=== PATIENT | female | born 1995 | race Caucasian/White ===

== ENCOUNTER → 2017-01-09 | Outpatient (CLI) | payer OTHER ==
[~2017-01-09] MED LIST: ALBU18002 INH; AMOX250C3 PO; ANTICRE6 PO; BSP15 PO; HYDR50CA2 PO; OMEP40CA41 PO; Proair HFA INH; RBX750 PO; RMR15 PO; SRQ100 PO; ULT50 PO; VLT/75 PO
== END | disposition home or self-care (01) ==
LOC: C.LAB 01:22
DX: Z02.83 Encounter for blood-alcohol and blood-drug test (principal)

== ENCOUNTER 2017-01-13 11:19 | Emergency (ER) | payer OTHER ==
[~2017-01-13] VITALS: Ht 167.6 cm; Wt 57.2 kg
[~2017-01-13 11:19] MED LIST changes: -ALBU18002 INH; -AMOX250C3 PO; -ANTICRE6 PO; -BSP15 PO; -HYDR50CA2 PO; -OMEP40CA41 PO; -RBX750 PO; -RMR15 PO; -SRQ100 PO; -VLT/75 PO
[2017-01-13 11:27] VITALS: TEMP 37; Ht 167.6 cm; Wt 57.2 kg
[2017-01-13] MEDS ORDERED: SODIUM CHLORIDE 0.9% 1000ML 1,000 ML IV STA (11:45)
[2017-01-13] MEDS ORDERED: ONDANSETRON INJ 2 MG/ML 2 ML VIAL IV STA (11:45)
[2017-01-13] MEDS ORDERED: ALBU18002 INH (11:58)
[2017-01-13 12:05] LABS: BASO % 1.1 %; COMPLETE YES; HEMATOCRIT 40.9 % (37-47); IG% 0.1 %; LYMPH % 24.5 %; LYMPH ABS # 2.17 K/uL (1.2-3.4); MEAN CELL VOLUME 94.2 fL (80-100); MEAN CORPUSCULAR HEMOGLOBIN 33.2 pg (25-34); MEAN CORPUSCULAR HGB CONC 35.2 g/dl (32-36); MEAN PLATELET VOLUME 11.1 fL (7.4-10.4); MONO % 8.3 %; PLATELET COUNT 209 K/uL (130-400); RED BLOOD COUNT 4.34 M/uL (4.2-5.4); WHITE BLOOD COUNT 8.84 K/uL (4.8-10.8)
[2017-01-13 12:16] LABS: URINE APPEARANCE TURBID (CLEAR); URINE BILIRUBIN NEG (NEG); URINE COLOR YELLOW; URINE NITRITE NEG (NEG); URINE PH 7.5 (4.5-7.5); URINE SPECIFIC GRAVITY 1.014 (1.000-1.030); UROBILINOGEN NEG (NEG); ZZUR CULT IF INDIC CLEAN CATCH NO
[2017-01-13 12:17] LABS: MANUAL MICROSCOPIC REQUIRED? NO; REVIEW REQ? YES
[2017-01-13 12:22] LABS: BUN/CREATININE RATIO 22.4 (10-20); CALCIUM 9.6 mg/dl (8.5-10.1); CREATININE 0.63 mg/dl (0.60-1.20); POTASSIUM 3.7 mmol/L (3.5-5.1)
[2017-01-13 12:27] LABS: ALB/GLOB RATIO 0.9 (0.9-2)
--- NOTE | 2017-01-13 12:49 | DIAGNOSTIC IMAGING REPORT ---
ABDOMINAL ULTRASOUND, RIGHT UPPER QUADRANT HISTORY: Right upper quadrant abdominal pain.. COMPARISON: Abdomen and pelvis CT 06/19/2016. FINDINGS: Pancreas: The pancreas demonstrates a normal echotexture. Liver: Unremarkable. Gallbladder: No gallbladder wall thickening. No gallstones. CBD: 4 mm. Right kidney: No hydronephrosis. IMPRESSION: No significant abnormality identified within the right upper quadrant. Electronically signed by: Skip Krishnamurthy M.D. 01/13/2017 12:48 PM Dictated Date/Time: 01/13/2017 12:46 PM
[2017-01-13] MEDS ORDERED: GI COCKTAIL PO STA (12:55)
[2017-01-13] MEDS ORDERED: LIDOCAINE HCL 2% VISC SOLN 20 ML UDC ONE (12:58)
[2017-01-13] MEDS ORDERED: ALUMINUM/MAGNESIUM SUSP 30 ML UDC ONE (12:58)
[2017-01-13] MEDS ORDERED: OMEP40CA41 PO (13:19)
--- NOTE | 2017-01-13 13:19 | EMERGENCY ROOM VISIT NOTE ---
History First contact with patient: 11:32 Chief Complaint: ABDOMINAL PAIN Stated Complaint: ABD PAIN, VOMITING Nursing Triage Summary: RUQ pain and pain by umbilicus that started 2 days ago History of Present Illness The patient is a 21 year old female who presents to the Emergency Room with complaints of abdominal pain and vomiting. The patient reports that she has been dizzy for the past few days. She does report that she is an alcoholic and quit drinking 3 days ago, which may be contributing to this. She states that this morning, she woke up with pain in her right upper abdomen. She began vomiting a few hours ago and has had 3 episodes of vomiting since then. She states the pain is worse when she is lying down. She rates her discomfort a 9/ 10 but has not taken any medication for the pain. The patient has a history of an appendectomy and PID. She denies any urinary symptoms, changes in bowel movements, fevers/chills, vaginal discharge, chest pain or shortness of breath. Review of Systems A complete 10-point Review of Systems was discussed with the patient, with pertinent positives and negatives listed in the History of Present Illness. All remaining Review of Systems questions can be considered negative unless otherwise specified. Past Medical/Surgical History Medical Problems: (1) Appendectomy (2) Asthma (3) Asthma, Unspecified (4) Chlamydia infection (5) Dysmenorrhea (6) Esophageal Reflux (7) Ovarian Cyst Nec/Nos (8) Pelvic pain in female (9) PID (pelvic inflammatory disease) Family History Cancer Diabetes mellitus Seizures Social History Smoking Status: Current Every Day Smoker Alcohol Use: occasionally Marital Status: single Housing Status: lives alone Occupation Status: employed Current/Historical Medications Scheduled Albuterol Sulfate (Proair Respiclick), 2 PUFFS INH QID Omeprazole (Prilosec), 40 MG PO DAILY Allergies Coded Allergies: Edetic Acid (Verified Allergy, Severe, PALPITATIONS, 01/13/17) Egg Phospholipids (Verified Allergy, Severe, PALPITATIONS, 01/13/17) Glycerin (Verified Allergy, Severe, PALPITATIONS, 01/13/17) Propofol (Verified Allergy, Severe, PALPITATIONS, 01/13/17) Cat Dander (Verified Allergy, Unknown, SHORTNESS OF BREATH, 01/13/17) Physical Exam Vital Signs Date Time Temp Pulse Resp B/P Pulse Ox O2 Delivery O2 Flow Rate FiO2 01/13/17 13:26 81 18 111/71 98 01/13/17 12:37 74 18 105/68 98 01/13/17 11:27 37.0 97 20 128/81 98 Room Air Physical Exam VITALS: Vitals are noted on the nurse's note and reviewed by myself. Vital signs stable. GENERAL: This is a 21-year-old female, in no acute distress, nondiaphoretic, well-developed well-nourished. SKIN: Capillary reflex less than 2 seconds. HEENT: Normocephalic. PERRLA. EOMI. Nares patent. Mucous membranes moist. Neck is supple without nuchal rigidity. HEART: Regular rate and rhythm without murmurs gallops or rubs. LUNGS: Clear to auscultation bilaterally without wheezes, rales or rhonchi. ABDOMEN: Positive bowel sounds x 4. Soft with mild tenderness of the right upper quadrant. Negative Chavez sign. No guarding or rebound tenderness. NEURO: Patient was alert and oriented to person place and time. Medical Decision & Procedures ER Provider Diagnostic Interpretation: ABDOMINAL ULTRASOUND, RIGHT UPPER QUADRANT FINDINGS: Pancreas: The pancreas demonstrates a normal echotexture. Liver: Unremarkable. Gallbladder: No gallbladder wall thickening. No gallstones. CBD: 4 mm. Right kidney: No hydronephrosis. IMPRESSION: No significant abnormality identified within the right upper quadrant. Laboratory Results 01/13/17 11:50 Red Blood Count 4.34, Mean Corpuscular Volume 94.2, Mean Corpuscular Hemoglobin 33.2, Mean Corpuscular Hemoglobin Concent 35.2, Mean Platelet Volume 11.1, Neutrophils (%) (Auto) 64.0, Lymphocytes (%) (Auto) 24.5, Monocytes (%) (Auto) 8.3, Eosinophils (%) (Auto) 2.0, Basophils (%) (Auto) 1.1, Neutrophils # (Auto) 5.65, Lymphocytes # (Auto) 2.17, Monocytes # (Auto) 0.73, Eosinophils # (Auto) 0.18, Basophils # (Auto) 0.10 01/13/17 11:50 Test 01/13/17 11:30 01/13/17 11:50 Urine Color YELLOW Urine Appearance TURBID (CLEAR) Urine pH 7.5 (4.5-7.5) Urine Specific [place] 1.014 (1.000-1.030) Urine Protein NEG (NEG) Urine Glucose (UA) NEG (NEG) Urine Ketones NEG (NEG) Urine Occult Blood NEG (NEG) Urine Nitrite NEG (NEG) Urine Bilirubin NEG (NEG) Urine Urobilinogen NEG (NEG) Urine Leukocyte Esterase NEG (NEG) Urine WBC (Auto) 0 /hpf (0-5) Urine RBC (Auto) 0-4 /hpf (0-4) Urine Hyaline Casts (Auto) 1-5 /lpf (0-5) Urine Epithelial Cells (Auto) 10-20 /lpf (0-5) Urine Bacteria (Auto) NEG (NEG) Urine Crystals AMORPHOUS SEDIMENT (NONE Urine Test NEG (NEG) White Blood Count 8.84 K/uL (4.8-10.8) Red Blood Count 4.34 M/uL (4.2-5.4) Hemoglobin 14.4 g/dL (12.0-16.0) Hematocrit 40.9 % (37-47) Mean Corpuscular Volume 94.2 fL (80-100) Mean Corpuscular Hemoglobin 33.2 pg (25-34) Mean Corpuscular Hemoglobin Concent 35.2 g/dl (32-36) Platelet Count 209 K/uL (130-400) Mean Platelet Volume 11.1 fL (7.4-10.4) Neutrophils (%) (Auto) 64.0 % Lymphocytes (%) (Auto) 24.5 % Monocytes (%) (Auto) 8.3 % Eosinophils (%) (Auto) 2.0 % Basophils (%) (Auto) 1.1 % Neutrophils # (Auto) 5.65 K/uL (1.4-6.5) Lymphocytes # (Auto) 2.17 K/uL (1.2-3.4) Monocytes # (Auto) 0.73 K/uL (0.11-0.59) Eosinophils # (Auto) 0.18 K/uL (0-0.5) Basophils # (Auto) 0.10 K/uL (0-0.2) RDW Standard Deviation 46.4 fL (36.4-46.3) RDW Coefficient of Variation 13.4 % (11.5-14.5) Immature Granulocyte % (Auto) 0.1 % Immature Granulocyte # (Auto) 0.01 K/uL (0.00-0.02) Anion Gap 10.0 mmol/L (3-11) Est Creatinine Clear Calc Drug Dose 126.5 ml/min Estimated GFR () 147.6 Estimated GFR (Non- 127.3 BUN/Creatinine Ratio 22.4 (10-20) Calcium Level 9.6 mg/dl (8.5-10.1) Total Bilirubin 0.3 mg/dl (0.2-1) Aspartate Amino Transf (AST/SGOT) 9 U/L (15-37) Alanine Aminotransferase (ALT/SGPT) 13 U/L (12-78) Alkaline Phosphatase 69 U/L (45-117) Total Protein 7.7 gm/dl (6.4-8.2) Albumin 3.7 gm/dl (3.4-5.0) Globulin 4.0 gm/dl (2.5-4.0) Albumin/Globulin Ratio 0.9 (0.9-2) Lipase 148 U/L (73-393) Medications Administered Medications (Trade) Dose Ordered Sig/Yeni Route Start Time Stop Time Status Last Admin Dose Admin Sodium Chloride (Nss 1000ml) 1,000 ml @ 999 mls/hr Q1H1M STAT IV 01/13/17 11:45 01/13/17 12:45 DC 01/13/17 12:00 999 MLS/HR Ondansetron HCl (Zofran Inj) 4 mg NOW STAT IV 01/13/17 11:45 01/13/17 11:47 DC 01/13/17 12:00 4 MG Al Hydroxide/Mg Hydroxide (Maalox Susp) 30 ml STK-MED ONCE .ROUTE 01/13/17 12:58 01/13/17 13:01 DC 01/13/17 12:58 30 ML Lidocaine HCl (Viscous Lidocaine 2% Soln) 20 ml STK-MED ONCE .ROUTE 01/13/17 12:58 01/13/17 13:02 DC 01/13/17 12:58 20 ML Medical Decision Differential diagnosis includes biliary colic, renal calculus, pyelonephritis, gastroenteritis, colitis, pancreatitis, among others. The patient was evaluated as above. Labs were drawn and IV access was obtained. Imaging studies were performed and read by radiology as above. The patient was medicated with 1 L normal saline solution, 4 mg Zofran and a GI cocktail. The patient was reassessed multiple times during their stay in the emergency department and remained in stable condition. The patient is a 21-year-old female who presents today complaining of right upper quadrant abdominal pain. Labs revealed no leukocytosis, anemia or concerning electrolyte abnormalities. Urinalysis was not suggestive of infection. Urine was negative. Right upper quadrant ultrasound was performed and showed no acute findings. Her symptoms are likely secondary to gastritis. The patient was given a GI cocktail with some relief of her pain. She was instructed to take Prilosec at home and follow-up with her primary care provider. She will return sooner for any worsening of her current condition or new/concerning symptoms. Based on the patient's presentation, lab results, and imaging studies, I feel the patient is stable for outpatient treatment. Discharge instructions were reviewed with the patient. The patient verbalized understanding of my assessment and treatment plan and was discharged home in good condition. Impression Primary Impression: Right upper quadrant abdominal pain Departure Information Dispostion Home / Self-Care Condition GOOD Prescriptions Omeprazole (PRILOSEC) 40 Mg Cap 40 MG PO DAILY for 14 Days, #14 CAP Prov: Karen Friedman ., JEN 01/13/17 Referrals No Doctor, Assigned (PCP) Patient Instructions My [facility] Additional Instructions You have been treated in the Emergency Department your Abdominal Pain. Laboratory results and imaging studies have ruled out any emergent causes for your abdominal pain which would warrant admission or surgery. Begin taking Prilosec as prescribed. For pain control, you can use the following [id number] medicines (if >12 yo): - Regular strength (325mg/tab) Tylenol (acetaminophen) 2 tabs every 4-6 hours as needed. Do not exceed 12 tablets in a 24 hour period. Avoid taking more than 4 grams (4000 mg) of Tylenol per day. This includes any other sources of acetaminophen you may take on a regular basis. - Regular strength (200 mg/tab) Advil (ibuprofen) 1-2 tabs every 4-6 hours as needed. Do not exceed a dose of 3200 mg per day. Drink plenty of water and stay well hydrated. As with any trip to the Emergency Department, you should follow-up within 48 hours with your Primary Care Provider from today's visit. Return to the emergency department if your symptoms persist despite treatment plan outlined above or if the following symptoms occur: increased fevers, chills , worsening nausea/vomiting, blood in your stool or urine.
[2017-01-13 13:26] VITALS: BP 111/71; PULSE 81; O2SAT 98
== END 2017-01-13 13:27 | disposition home or self-care (01) ==
LOC: C.EDB 11:20
DX: R10.11 Right upper quadrant pain (principal); K21.9 Gastro-esophageal reflux disease without esophagitis; N83.209 Unspecified ovarian cyst, unspecified side; J45.909 Unspecified asthma, uncomplicated; F17.200 Nicotine dependence, unspecified, uncomplicated; Z86.19 Personal history of other infectious and parasitic diseases; Z79.899 Other long term (current) drug therapy; Z87.898 Personal history of other specified conditions; Z88.8 Allergy status to other drugs, medicaments and biological substances; Z91.018 Allergy to other foods; Z91.09 Other allergy status, other than to drugs and biological substances; Z80.9 Family history of malignant neoplasm, unspecified; Z83.3 Family history of diabetes mellitus; Z82.0 Family history of epilepsy and other diseases of the nervous system

== ENCOUNTER 2017-03-26 04:10 | Emergency (ER) | payer OTHER ==
[~2017-03-26] VITALS: Ht 165.1 cm; Wt 57.9 kg
[~2017-03-26 04:10] MED LIST changes: +ALBU18002 INH; -Proair HFA INH; -ULT50 PO
[2017-03-26 04:13] VITALS: TEMP 36.7; Ht 165.1 cm; Wt 57.9 kg
[2017-03-26 04:52] LABS: BASO % 0.5 %; BASO ABS # 0.04 K/uL (0-0.2); COMPLETE YES; EOS % 3.3 %; HEMATOCRIT 45.5 % (37-47); LYMPH % 36.8 %; LYMPH ABS # 3.21 K/uL (1.2-3.4); MEAN CELL VOLUME 99.3 fL (80-100); MEAN CORPUSCULAR HEMOGLOBIN 33.2 pg (25-34); MEAN CORPUSCULAR HGB CONC 33.4 g/dl (32-36); MEAN PLATELET VOLUME 11.2 fL (7.4-10.4); MONO % 7.1 %; NEUT % 52.3 %; PLATELET COUNT 199 K/uL (130-400); RED BLOOD COUNT 4.58 M/uL (4.2-5.4); WHITE BLOOD COUNT 8.72 K/uL (4.8-10.8)
[2017-03-26 05:03] LABS: URINE APPEARANCE CLEAR (CLEAR); URINE BILIRUBIN NEG (NEG); URINE COLOR YELLOW; URINE NITRITE NEG (NEG); URINE PH 5.5 (4.5-7.5); URINE SPECIFIC GRAVITY 1.021 (1.000-1.030); UROBILINOGEN NEG (NEG)
[2017-03-26 05:08] LABS: MANUAL MICROSCOPIC REQUIRED? NO; REVIEW REQ? NO
[2017-03-26 05:13] LABS: BUN/CREATININE RATIO 10.8 (10-20); CALCIUM 8.4 mg/dl (8.5-10.1); CREATININE 0.76 mg/dl (0.60-1.20); POTASSIUM 3.6 mmol/L (3.5-5.1)
[2017-03-26 05:23] LABS: PREG INTERNAL NEGATIVE QC NEG CLEAR BACKGROUND; PREG INTERNAL POSITIVE QC POS CONTROL LINE
[2017-03-26] MEDS ORDERED: KETOROLAC TROMETHAMINE 30 MG/ML VIAL IV STA (05:25)
[2017-03-26 05:44] VITALS: O2SAT 99
--- NOTE | 2017-03-26 06:16 | EMERGENCY ROOM VISIT NOTE ---
History First contact with patient: 04:17 Chief Complaint: VAGINAL BLEEDING Stated Complaint: VAG BLEEDING History of Present Illness The patient is a 22 year old female who presents to the Emergency Room with complaints of sudden onset of vaginal bleeding cramping for the past few hours that a miscarriage one month ago. She has one living child. Patient denies chest pain, dyspnea, fever, chills, nausea, vomiting, diarrhea, urinary symptoms , back pain. Review of Systems See HPI for pertinent positives & negatives. A total of 10 systems reviewed and were otherwise negative. Past Medical/Surgical History Medical Problems: (1) Appendectomy (2) Asthma (3) Asthma, Unspecified (4) Chlamydia infection (5) Dysmenorrhea (6) Esophageal Reflux (7) Ovarian Cyst Nec/Nos (8) Pelvic pain in female (9) PID (pelvic inflammatory disease) Family History Cancer Diabetes mellitus Seizures Social History Smoking Status: Current Every Day Smoker Alcohol Use: occasionally Marital Status: single Housing Status: lives alone Occupation Status: employed Current/Historical Medications Scheduled Albuterol Sulfate (Proair Respiclick), 2 PUFFS INH QID Allergies Coded Allergies: Edetic Acid (Verified Allergy, Severe, PALPITATIONS, 03/26/17) Egg Phospholipids (Verified Allergy, Severe, PALPITATIONS, 03/26/17) Glycerin (Verified Allergy, Severe, PALPITATIONS, 03/26/17) Propofol (Verified Allergy, Severe, PALPITATIONS, 03/26/17) Cat Dander (Verified Allergy, Unknown, SHORTNESS OF BREATH, 03/26/17) Physical Exam Vital Signs Date Time Temp Pulse Resp B/P Pulse Ox O2 Delivery O2 Flow Rate FiO2 03/26/17 05:44 90 18 115/67 99 Room Air 03/26/17 05:44 99 Room Air 03/26/17 04:13 36.7 112 20 121/84 99 Room Air Physical Exam VITALS: Vitals are noted on the nurse's note and reviewed by myself. Vital signs stable. GENERAL: Pleasant female, in no acute distress, nondiaphoretic, well-developed well-nourished. SKIN: The skin was without rashes, erythema, edema, or bruising. There is no tenting of the skin. Capillary reflex less than 2 seconds. HEAD: Normocephalic atraumatic. EARS: External auditory canals clear, tympanic membranes pearly marquez without erythema or effusion bilaterally. EYES: Pupils equal round and reactive to light and accommodation. Conjunctivae without injection, sclerae without icterus. Extraocular movements intact. NOSE: Patent, turbinates without inflammation or discharge. MOUTH: Mucous membranes moist. Tonsils are not enlarged. Pharynx without erythema or exudate. Uvula midline. Airway patent. Tongue does not deviate. NECK: Supple without nuchal rigidity. No lymphadenopathy. No thyromegaly. Cervical spine is nontender. No JVD. HEART: Regular rate and rhythm without murmurs gallops or rubs. LUNGS: Clear to auscultation bilaterally without wheezes, rales or rhonchi. No dullness to percussion. No retractions or accessory muscle use. ABDOMEN: Positive bowel sounds x 4. Normal tympanic percussion. Soft, nontender, without masses or organomegaly. Chavez sign negative. No guarding or rebound tenderness. No CVA tenderness exam: Normal external female genitalia, minimal blood in the vault, os is closed, no CMT or adnexal tenderness. Geriatric Case Manager present. Patient declined STI testing. MUSCULOSKELETAL: No muscle atrophy, erythema, or edema noted. NEURO: Patient was alert and oriented to person place and time. Normal sensation to light and sharp touch. No focal neurological deficits. Medical Decision & Procedures Laboratory Results 03/26/17 04:38 Red Blood Count 4.58, Mean Corpuscular Volume 99.3, Mean Corpuscular Hemoglobin 33.2, Mean Corpuscular Hemoglobin Concent 33.4, Mean Platelet Volume 11.2, Neutrophils (%) (Auto) 52.3, Lymphocytes (%) (Auto) 36.8, Monocytes (%) (Auto) 7.1, Eosinophils (%) (Auto) 3.3, Basophils (%) (Auto) 0.5, Neutrophils # (Auto) 4.56, Lymphocytes # (Auto) 3.21, Monocytes # (Auto) 0.62, Eosinophils # (Auto) 0.29, Basophils # (Auto) 0.04 03/26/17 04:38 Test 03/26/17 04:38 White Blood Count 8.72 K/uL (4.8-10.8) Red Blood Count 4.58 M/uL (4.2-5.4) Hemoglobin 15.2 g/dL (12.0-16.0) Hematocrit 45.5 % (37-47) Mean Corpuscular Volume 99.3 fL (80-100) Mean Corpuscular Hemoglobin 33.2 pg (25-34) Mean Corpuscular Hemoglobin Concent 33.4 g/dl (32-36) Platelet Count 199 K/uL (130-400) Mean Platelet Volume 11.2 fL (7.4-10.4) Neutrophils (%) (Auto) 52.3 % Lymphocytes (%) (Auto) 36.8 % Monocytes (%) (Auto) 7.1 % Eosinophils (%) (Auto) 3.3 % Basophils (%) (Auto) 0.5 % Neutrophils # (Auto) 4.56 K/uL (1.4-6.5) Lymphocytes # (Auto) 3.21 K/uL (1.2-3.4) Monocytes # (Auto) 0.62 K/uL (0.11-0.59) Eosinophils # (Auto) 0.29 K/uL (0-0.5) Basophils # (Auto) 0.04 K/uL (0-0.2) RDW Standard Deviation 50.2 fL (36.4-46.3) RDW Coefficient of Variation 13.7 % (11.5-14.5) Immature Granulocyte % (Auto) 0.0 % Immature Granulocyte # (Auto) 0.00 K/uL (0.00-0.02) Urine Color YELLOW Urine Appearance CLEAR (CLEAR) Urine pH 5.5 (4.5-7.5) Urine Specific [place] 1.021 (1.000-1.030) Urine Protein NEG (NEG) Urine Glucose (UA) NEG (NEG) Urine Ketones NEG (NEG) Urine Occult Blood NEG (NEG) Urine Nitrite NEG (NEG) Urine Bilirubin NEG (NEG) Urine Urobilinogen NEG (NEG) Urine Leukocyte Esterase NEG (NEG) Urine Test NEG (NEG) Anion Gap 6.0 mmol/L (3-11) Est Creatinine Clear Calc Drug Dose 103.6 ml/min Estimated GFR () 128.1 Estimated GFR (Non- 110.6 BUN/Creatinine Ratio 10.8 (10-20) Calcium Level 8.4 mg/dl (8.5-10.1) Total Bilirubin 0.2 mg/dl (0.2-1) Aspartate Amino Transf (AST/SGOT) 11 U/L (15-37) Alanine Aminotransferase (ALT/SGPT) 17 U/L (12-78) Alkaline Phosphatase 72 U/L (45-117) Total Protein 8.1 gm/dl (6.4-8.2) Albumin 4.0 gm/dl (3.4-5.0) Globulin 4.1 gm/dl (2.5-4.0) Albumin/Globulin Ratio 1.0 (0.9-2) Human Chorionic Gonadotropin, Qual NEG (NEG) Medications Administered Medications (Trade) Dose Ordered Sig/Yeni Route Start Time Stop Time Status Last Admin Dose Admin Ketorolac Tromethamine (Toradol Inj) 30 mg NOW STAT IV 03/26/17 05:25 03/26/17 05:26 DC 03/26/17 05:47 30 MG ED Course Prior records/ancillary studies reviewed. Triage Nursing notes reviewed. The patient's history was concerning for vaginal bleeding and abdominal pain. Differential diagnosis: Etiologies such as ectopic , dysfunction uterine bleeding, bleeding dyscrasia, trauma, infection, as well as others were entertained. Physical examination: As above. Vitals signs revealed stable. ER treatment provided: IV fluids On reassessment the patient felt better. Diagnostic interpretation by me: CBC, coagulation studies, and chemistries were unremarkable. Urine test was negative. Urinalysis revealed no sign of infection. Imaging studies: Ultrasound was reviewed by myself and read by radiology This appears to be consistent with vaginal bleeding most likely the patient's menstrual cycle. Patient had stable H&H. She is well-appearing. She is advised to follow-up with her OB doctor this week or here in the ER sooner for heavy vaginal bleeding, pain, worsening signs or symptoms or as needed. Patient had no signs of PID on clinical exam. By the evaluation outlined above emergent etiologies such as bleeding dyscrasia, ectopic , trauma, as well as others were deemed relatively unlikely. The pt informed about the findings as listed above. All questions were answered and pleased with the treatment. Return instructions were outlined and the patient was discharged in stable condition. Referral: The patient was referred to her HANDLING TECH for follow-up in 2 to 3 days for a recheck of her current condition. Case reviewed with my attending. Medical Decision As above Impression Primary Impression: Abnormal vaginal bleeding Departure Information Dispostion Home / Self-Care Condition GOOD Referrals No Doctor, Assigned (PCP) Patient Instructions [facility] Additional Instructions Ibuprofen(Motrin, Advil) may be used for fever or pain. Use 600mg every six hours as needed. Take with food. Avoid using more than 2400mg in a 24 hour period. Do not use 2400mg per day for more than three consecutive days without physician direction. Prolonged inappropriate use can lead to stomach upset or ulcers. (AND/OR) Acetaminophen(Tylenol) may be used for fever or pain. Use 1000mg every six hours as needed. Avoid using more than 3000mg in a 24 hour period. Rest and drink plenty of fluids as tolerated. Continue current medications. Avoid strenuous activities and anything that worsens your pain. Resume normal activities once your symptoms resolve. Return to the ER immediately for worsening or persistent heavy vaginal bleeding , abdominal pain, vomiting, fevers, chest pains, difficulty breathing, worsening of your condition, or as needed. Follow up with your primary physician or HANDLING TECH in 2-3 days for a recheck of your current condition.
[2017-03-26 06:22] VITALS: BP 104/64; PULSE 81; O2SAT 95
--- NOTE | 2017-03-26 07:37 | DIAGNOSTIC IMAGING REPORT ---
PELVIC ULTRASOUND CLINICAL HISTORY: Vaginal bleeding and pain. COMPARISON STUDY: Pelvic ultrasound June 01, [address] of the abdomen and pelvis June 19, 2016. TECHNIQUE: Transabdominal and transvaginal sonography of the pelvis was performed. FINDINGS: The uterus measures 9.2 x 3.9 x 4.9 cm. Endometrium is normal in thickness, measuring 2 mm. There are no areas of increased vascularity within the endometrium. There is trace fluid within the endometrial canal. The ovaries are sonographically normal. The right ovary measures 2.9 x 1.4 x 1.9 cm and the left measures 2.7 x 1.2 x 1.2 cm. There is no free pelvic fluid. Color flow is identified within each ovary. IMPRESSION: Unremarkable pelvic ultrasound. Normal endometrial thickness of 2 mm with trace fluid within the endometrial canal. Electronically signed by: Matt Faith M.D. 03/26/2017 7:35 AM Dictated Date/Time: 03/26/2017 7:25 AM
[2017-07-10] MEDS ORDERED: QUET-115 PO (11:03)
== END 2017-03-26 06:22 | disposition home or self-care (01) ==
LOC: C.EDB 04:12 → C.EDA 06:22
DX: N93.9 Abnormal uterine and vaginal bleeding, unspecified (principal); J45.909 Unspecified asthma, uncomplicated; N94.6 Dysmenorrhea, unspecified; Z83.3 Family history of diabetes mellitus; Z82.0 Family history of epilepsy and other diseases of the nervous system; F17.200 Nicotine dependence, unspecified, uncomplicated

== ENCOUNTER 2017-04-07 19:43 | Emergency (ER) | payer OTHER ==
[~2017-04-07] VITALS: Ht 165.1 cm; Wt 57.3 kg
[2017-04-07 19:47] VITALS: TEMP 36.9; Ht 165.1 cm; Wt 57.3 kg
[2017-04-07] MEDS ORDERED: AMPICILLIN/SULBACTAM SOD INJ 3,000 MG in SODIUM CHLORIDE 0.9% 100ML 100 ML IV STA (20:00)
[2017-04-07] MEDS ORDERED: SODIUM CHLORIDE 0.9% 1000ML 1,000 ML IV STA (20:00)
[2017-04-07] MEDS ORDERED: MAGIC SWIZZLE PO STA (20:14)
[2017-04-07] MEDS ORDERED: METHYLPREDNISOLONE 125 MG VIAL IV STA (20:14)
[2017-04-07 21:01] LABS: MEAN CELL VOLUME 97.6 fL (80-100); MEAN CORPUSCULAR HGB CONC 33.9 g/dl (32-36); MEAN PLATELET VOLUME 10.8 fL (7.4-10.4); PLATELET COUNT 192 K/uL (130-400); RED BLOOD COUNT 4.51 M/uL (4.2-5.4)
[2017-04-07 21:16] LABS: BUN/CREATININE RATIO 10.9 (10-20); CREATININE 0.74 mg/dl (0.60-1.20); POTASSIUM 3.8 mmol/L (3.5-5.1)
[2017-04-07 21:19] LABS: BASO % 0.3 %; BASO ABS # 0.04 K/uL (0-0.2); COMPLETE YES; EOS % 0.6 %; IG% 0.3 %; LYMPH % 8.6 %; LYMPH ABS # 1.34 K/uL (1.2-3.4); MONO % 7.6 %; NEUT % 82.6 %
[2017-04-07] MEDS ORDERED: AMOX250C3 PO (21:24)
[2017-04-07] MEDS ORDERED: ANTICRE6 PO (21:25)
--- NOTE | 2017-04-07 21:37 | EMERGENCY ROOM VISIT NOTE ---
History First contact with patient: 19:52 Chief Complaint: HEADACHE Stated Complaint: STREP MIGRAINE DEHYDRATED History of Present Illness The patient is a 22 year old female who presents to the Emergency Room with complaints of strep throat. The patient states that she was just seen at her primary care provider's office and diagnosed with strep by throat swab. She states that she came directly here rather than filling her prescriptions because it is too painful for her to swallow. She states she has not been eating or drinking for 3 days because her throat is painful. She reports an associated headache. She denies any difficulty breathing or difficulty opening her mouth. She rates her discomfort a 5/10. She has not taken any medication at home for her symptoms. Review of Systems A complete 10 point review of systems was reviewed with the patient with pertinent positives and negatives as per history of present illness. All else were negative. Past Medical/Surgical History Medical Problems: (1) Appendectomy (2) Asthma (3) Asthma, Unspecified (4) Chlamydia infection (5) Dysmenorrhea (6) Esophageal Reflux (7) Ovarian Cyst Nec/Nos (8) Pelvic pain in female (9) PID (pelvic inflammatory disease) Family History Cancer Diabetes mellitus Seizures Social History Smoking Status: Current Every Day Smoker Alcohol Use: occasionally Marital Status: single Housing Status: lives alone Occupation Status: employed Current/Historical Medications No Active Prescriptions or Reported Meds Allergies Coded Allergies: Edetic Acid (Verified Allergy, Severe, PALPITATIONS, 04/07/17) Egg Phospholipids (Verified Allergy, Severe, PALPITATIONS, 04/07/17) Glycerin (Verified Allergy, Severe, PALPITATIONS, 04/07/17) Propofol (Verified Allergy, Severe, PALPITATIONS, 04/07/17) Cat Dander (Verified Allergy, Unknown, SHORTNESS OF BREATH, 04/07/17) Physical Exam Vital Signs Date Time Temp Pulse Resp B/P (MAP) Pulse Ox O2 Delivery O2 Flow Rate FiO2 04/07/17 21:41 88 16 106/76 100 Room Air 04/07/17 20:57 96 18 118/57 98 04/07/17 19:47 36.9 111 16 118/76 98 Room Air Physical Exam VITALS: Vitals are noted on the nurse's note and reviewed by myself. Vital signs stable. GENERAL: This is a 22-year-old female, in no acute distress, nondiaphoretic, well-developed well-nourished. SKIN: The skin was without rashes. EARS: External auditory canals clear, tympanic membranes pearly marquez without erythema or effusion bilaterally. EYES: Pupils equal round and reactive to light and accommodation. Conjunctivae without injection, sclerae without icterus. Extraocular movements intact. MOUTH: Mucous membranes moist. Tonsils 2+ bilaterally with erythema and exudate present. NECK: Supple without nuchal rigidity. No lymphadenopathy. No trismus. HEART: Regular rate and rhythm without murmurs gallops or rubs. LUNGS: Clear to auscultation bilaterally without wheezes, rales or rhonchi. NEURO: Patient was alert and oriented to person place and time. Medical Decision & Procedures Laboratory Results 04/07/17 20:45 Red Blood Count 4.51, Mean Corpuscular Volume 97.6, Mean Corpuscular Hemoglobin 33.0, Mean Corpuscular Hemoglobin Concent 33.9, Mean Platelet Volume 10.8, Neutrophils (%) (Auto) 82.6, Lymphocytes (%) (Auto) 8.6, Monocytes (%) (Auto) 7.6, Eosinophils (%) (Auto) 0.6, Basophils (%) (Auto) 0.3, Neutrophils # (Auto) 12.81, Lymphocytes # (Auto) 1.34, Monocytes # (Auto) 1.18, Eosinophils # (Auto) 0.09, Basophils # (Auto) 0.04 04/07/17 20:45 Test 04/07/17 20:45 White Blood Count 15.50 K/uL (4.8-10.8) Red Blood Count 4.51 M/uL (4.2-5.4) Hemoglobin 14.9 g/dL (12.0-16.0) Hematocrit 44.0 % (37-47) Mean Corpuscular Volume 97.6 fL (80-100) Mean Corpuscular Hemoglobin 33.0 pg (25-34) Mean Corpuscular Hemoglobin Concent 33.9 g/dl (32-36) Platelet Count 192 K/uL (130-400) Mean Platelet Volume 10.8 fL (7.4-10.4) Neutrophils (%) (Auto) 82.6 % Lymphocytes (%) (Auto) 8.6 % Monocytes (%) (Auto) 7.6 % Eosinophils (%) (Auto) 0.6 % Basophils (%) (Auto) 0.3 % Neutrophils # (Auto) 12.81 K/uL (1.4-6.5) Lymphocytes # (Auto) 1.34 K/uL (1.2-3.4) Monocytes # (Auto) 1.18 K/uL (0.11-0.59) Eosinophils # (Auto) 0.09 K/uL (0-0.5) Basophils # (Auto) 0.04 K/uL (0-0.2) RDW Standard Deviation 47.1 fL (36.4-46.3) RDW Coefficient of Variation 13.2 % (11.5-14.5) Immature Granulocyte % (Auto) 0.3 % Immature Granulocyte # (Auto) 0.04 K/uL (0.00-0.02) Anion Gap 8.0 mmol/L (3-11) Est Creatinine Clear Calc Drug Dose 106.4 ml/min Estimated GFR () 132.4 Estimated GFR (Non- 114.2 BUN/Creatinine Ratio 10.9 (10-20) Calcium Level 8.8 mg/dl (8.5-10.1) Monoscreen NEG (NEG) Medications Administered Medications (Trade) Dose Ordered Sig/Yeni Route Start Time Stop Time Status Last Admin Dose Admin Sodium Chloride 1,000 ml @ 999 mls/hr Q1H1M STAT IV 04/07/17 20:00 04/07/17 21:00 DC 04/07/17 20:50 999 MLS/HR Ampicillin Sodium/ Sulbactam Sodium 3000 mg/Sodium Chloride 108 ml @ 200 mls/hr NOW STAT IV 04/07/17 20:00 04/07/17 20:32 DC 04/07/17 20:50 200 MLS/HR Methylprednisolone Sodium Succinate (Solu-Medrol IV) 125 mg NOW STAT IV 04/07/17 20:14 04/07/17 20:16 DC 04/07/17 20:47 125 MG ED Course The patient was evaluated as above. Labs were drawn and IV access was obtained. Patient was medicated with 1 L normal saline solution, IV steroids and IV Unasyn. Patient was reevaluated and had some improvement, but was still complaining of throat pain. She was able to tolerate Gatorade. Discharge instructions were reviewed with the patient. The patient verbalized understanding of my assessment and treatment plan and was discharged home in good condition. Medical Decision Differential diagnosis includes strep pharyngitis, mononucleosis, peritonsillar abscess, retropharyngeal abscess, among others. The patient is a 22-year-old female who presents today complaining of sore throat in the setting of a recent strep diagnosis. There is no evidence of peritonsillar abscess on exam. Labs revealed a leukocytosis of 15,000 consistent with the patient's current infection. No concerning electrolyte abnormalities. The patient was given IV fluids, IV steroids and IV antibiotics. She was able to tolerate oral fluids. She was instructed that she will need to fill her prescription for antibiotics and may have some pain until then. She was instructed to follow-up with her primary care provider as needed. Based on the patient's presentation and work up, I feel the patient is stable for outpatient treatment. The patient was educated to return to the emergency department for any worsening of their current condition or new/concerning symptoms. She will follow up with her PCP. Medication reconciliation: I attest that I have personally reviewed the patient 's current medication list. Blood pressure screening: Patient was found to have normal blood pressure on screening and does not require follow-up. Impression Primary Impression: Strep pharyngitis Departure Information Dispostion Home / Self-Care Condition GOOD Prescriptions No Active Prescriptions or Reported Meds Referrals Radha Grace (PCP) Patient Instructions My [facility] Additional Instructions Take all medications as prescribed by your primary care provider. Rest and drink plenty of fluids. For pain control, you can use the following [id number] medicines (if >12 yo): - Regular strength (325mg/tab) Tylenol (acetaminophen) 2 tabs every 4-6 hours as needed. Do not exceed 12 tablets in a 24 hour period. Avoid taking more than 4 grams (4000 mg) of Tylenol per day. This includes any other sources of acetaminophen you may take on a regular basis. - Regular strength (200 mg/tab) Advil (ibuprofen) 1-2 tabs every 4-6 hours as needed. Do not exceed a dose of 3200 mg per day. Return to the emergency department with worsening swelling, difficulty swallowing or any other new/concerning symptoms.
[2017-04-07 21:41] VITALS: BP 106/76; PULSE 88; O2SAT 100
[2017-04-07 22:02] LABS: CALCIUM 8.8 mg/dl (8.5-10.1)
[2017-07-10] MEDS ORDERED: QUET-115 PO (11:03)
== END 2017-04-07 21:46 | disposition home or self-care (01) ==
LOC: C.EDB 19:44
DX: J02.0 Streptococcal pharyngitis (principal); R51 Headache; J45.909 Unspecified asthma, uncomplicated; K21.9 Gastro-esophageal reflux disease without esophagitis; Z80.9 Family history of malignant neoplasm, unspecified; Z83.3 Family history of diabetes mellitus; Z82.0 Family history of epilepsy and other diseases of the nervous system; F17.210 Nicotine dependence, cigarettes, uncomplicated

== ENCOUNTER → 2017-04-21 | Outpatient (CLI) | payer OTHER ==
[~2017-04-21] MED LIST changes: -ALBU18002 INH; +BSP15 PO; +HYDR50CA2 PO; +QUET-115 PO; +RBX750 PO; +RMR15 PO; +VLT/75 PO
== END | disposition home or self-care (01) ==
LOC: C.LAB 22:49
DX: Z04.8 Encounter for examination and observation for other specified reasons (principal)

== ENCOUNTER 2017-07-10 10:03 | Emergency (ER) | payer OTHER ==
[~2017-07-10] VITALS: Ht 167.6 cm; Wt 61.3 kg
[2017-07-10 10:12] VITALS: TEMP 36.8
[2017-07-10] MEDS ORDERED: VLT/75 PO (11:03)
[2017-07-10] MEDS ORDERED: RBX750 PO (11:03)
[2017-07-10] MEDS ORDERED: HYDR50CA2 PO (11:03)
[2017-07-10] MEDS ORDERED: SRQ100 PO (11:03)
[2017-07-10] MEDS ORDERED: BSP15 PO (11:03)
[2017-07-10] MEDS ORDERED: RMR15 PO (11:03)
[2017-07-10 11:09] VITALS: Ht 167.6 cm; Wt 61.3 kg
--- NOTE | 2017-07-10 11:12 | EMERGENCY ROOM VISIT NOTE ---
History Report prepared by Daniel: Heather Smyth Under the Supervision of: Dr. Lele Hurley M.D. First contact with patient: 11:02 Chief Complaint: BACK PAIN Stated Complaint: LOWER BACK PAIN History of Present Illness The patient is a 22 year old female who presents to the Emergency Room with complaints of constant lower back pain beginning a couple months ago. The patient takes ibuprofen with no relief. Her pain worsens with looking down. The patient was seeing a chiropractor and masseuse multiple times a week but has since stopped. She was on Toradol for two months for her chronic back pain but has since stopped. The patient denies any fever, chills, cough, neck pain, urinary symptoms, or incontinence. Source of History: patient Onset: a couple months ago Position: back (lower) Timing: constant Modifying Factors (Worsening): other (with looking down) Associated Symptoms: No fevers, No chills, No cough, No neck pain, No urinary symptoms Review of Systems See HPI for pertinent positives and negatives. A total of ten systems were reviewed and were otherwise negative. Past Medical & Surgical Medical Problems: (1) Appendectomy (2) Asthma (3) Asthma, Unspecified (4) Chlamydia infection (5) Dysmenorrhea (6) Esophageal Reflux (7) Ovarian Cyst Nec/Nos (8) Pelvic pain in female (9) PID (pelvic inflammatory disease) Family History Cancer Diabetes mellitus Seizures Social History Smoking Status: Never Smoker Alcohol Use: occasionally Marital Status: single Housing Status: lives alone Occupation Status: employed Current/Historical Medications Scheduled Buspirone HCl (Buspirone HCl), 15 MG PO TID Diclofenac Sod (Diclofenac Sodium Dr), 75 MG PO QAM Methocarbamol (Methocarbamol), 750 MG PO BID Mirtazapine (Mirtazapine), 15 MG PO HS Quetiapine Fumarate (Quetiapine Fumarate), 100 MG PO QID Scheduled PRN Hydroxyzine Pamoate (Vistaril), 50 MG PO DAILY PRN for Anxiety Allergies Coded Allergies: Edetic Acid (Verified Allergy, Severe, PALPITATIONS, 07/10/17) Egg Phospholipids (Verified Allergy, Severe, PALPITATIONS, 07/10/17) Glycerin (Verified Allergy, Severe, PALPITATIONS, 07/10/17) Propofol (Verified Allergy, Severe, PALPITATIONS, 07/10/17) Cat Dander (Verified Allergy, Unknown, SHORTNESS OF BREATH, 07/10/17) Physical Exam Vital Signs Date Time Temp Pulse Resp B/P (MAP) Pulse Ox O2 Delivery O2 Flow Rate FiO2 07/10/17 13:40 69 18 100/55 98 Room Air 07/10/17 11:35 75 112/69 99 Room Air 07/10/17 10:12 36.8 89 16 124/79 97 Room Air Physical Exam GENERAL: Awake, alert, well-appearing, in no distress HENT: Normocephalic, atraumatic. Oropharynx unremarkable. EYES: Normal conjunctiva. Sclera non-icteric. NECK: Supple. No nuchal rigidity. FROM. No JVD. RESPIRATORY: Clear to auscultation. CARDIAC: Regular rate, normal rhythm. Extremities warm and well perfused. Pulses equal. ABDOMEN: Soft, non-distended. No tenderness to palpation. No rebound or guarding. No masses. RECTAL: Deferred. MUSCULOSKELETAL: Chest examination reveals no tenderness. The back is symmetrical on inspection without obvious abnormality. Mild Lumbar, paraspinal and midline tenderness even with light touch. No joint edema. No clonus. Negative straight leg raise. LOWER EXTREMITIES: Calves are equal size bilaterally and non-tender. No edema. No discoloration. NEURO: Normal sensorium. No sensory or motor deficits noted. SKIN: No rash or jaundice noted. Medical Decision & Procedures Laboratory Results Test 07/10/17 10:57 Urine Color DK YELLOW Urine Appearance CLEAR (CLEAR) Urine pH 5.5 (4.5-7.5) Urine Specific [place] 1.027 (1.000-1.030) Urine Protein NEG (NEG) Urine Glucose (UA) NEG (NEG) Urine Ketones NEG (NEG) Urine Occult Blood NEG (NEG) Urine Nitrite NEG (NEG) Urine Bilirubin NEG (NEG) Urine Urobilinogen NEG (NEG) Urine Leukocyte Esterase NEG (NEG) Urine WBC (Auto) 1-5 /hpf (0-5) Urine RBC (Auto) 0-4 /hpf (0-4) Urine Hyaline Casts (Auto) 1-5 /lpf (0-5) Urine Epithelial Cells (Auto) >30 /lpf (0-5) Urine Bacteria (Auto) NEG (NEG) Laboratory results reviewed by me Medications Administered Medications (Trade) Dose Ordered Sig/Yeni Route Start Time Stop Time Status Last Admin Dose Admin Ibuprofen (Motrin Tab) 800 mg NOW STAT PO 07/10/17 11:14 07/10/17 11:16 DC 07/10/17 11:34 800 MG Acetaminophen (Tylenol Tab) 1,000 mg NOW STAT PO 07/10/17 11:14 07/10/17 11:16 DC 07/10/17 11:35 1,000 MG ED Course 1105: The patient was evaluated in room C6. A complete history and physical exam was performed. 1114: Tylenol tab 1000 mg PO, Motrin Tab 800 mg PO. 1343: I reevaluated the patient she is resting comfortably. 1355: I reevaluated the patient. Discussed results and discharge instructions: She verbalized understanding and agreement. The patient is ready for discharge. Medical Decision I reviewed the patient's past medical history, medications, and the nursing notes as described above. Differential diagnosis: muscular strain, soft tissue contusion, lumbar radiculopathy, UTI, and pyelonephritis Patient is a 22 yo woman who presents to the emergency department c/o of 2 months of back pain per HPI. On arrival the patient is in NAD, AFVSS. On exam the patient as ttp with even light touch of lumbar midline and paraspinal muscles. 5/5 strength and SILT x 4 ext. No clonus. Denies urinary retention or bowl incontinence. Abd soft NTND. UA negative. Mild improvement with APAP/ IB. I d/w patient that NSAIDS, rest, and heat are the best treatment for chronic back pain. Moreover, stronger medications such as narcotics are not advised, particularly b/c opiod-induced hyperalgesia and addictive potential. Given the patient's exam is reassuring there is no indication for imaging at this time. Findings and plan for follow-up d/w patient. Patient agreeable and d/c'd per discharge instructions. Medication Reconcilliation Current Medication List: was personally reviewed by me Blood Pressure Screening Patient's blood pressure: Normal blood pressure Impression Primary Impression: Low back pain Scribe Attestation The scribe's documentation has been prepared under my direction and personally reviewed by me in its entirety. I confirm that the note above accurately reflects all work, treatment, procedures, and medical decision making performed by me. Departure Information Dispostion Home / Self-Care Referrals Gerry Frias M.D. (PCP) Forms HOME CARE DOCUMENTATION FORM, IMPORTANT VISIT INFORMATION Patient Instructions Back Pain - [facility], Exercises Back Lower Back Stretch, Low Back Pain Self Care, Muscle Spasm, My [facility] Additional Instructions Please follow up with your primary care physician in the next 1-3 days for re- evaluation. Otherwise, your exam did not show signs of an emergent condition at this time. Take acetaminophen every 4-6 hours and ibuprofen every 6-8 hours scheduled for the next several days. Additionally apply heating pad at 20 minute intervals throughout the day for additional muscle relaxation and pain relief Return to the emergency department for worsening symptoms as described in the accompanying instructions.
[2017-07-10] MEDS ORDERED: IBUPROFEN 800 MG TAB PO STA (11:14)
[2017-07-10] MEDS ORDERED: ACETAMINOPHEN 500 MG TAB PO STA (11:14)
[2017-07-10 11:36] LABS: URINE APPEARANCE CLEAR (CLEAR); URINE BILIRUBIN NEG (NEG); URINE COLOR DK YELLOW; URINE EPITHELIAL CELL AUTO >30 /lpf (0-5); URINE NITRITE NEG (NEG); URINE PH 5.5 (4.5-7.5); URINE SPECIFIC GRAVITY 1.027 (1.000-1.030); UROBILINOGEN NEG (NEG); ZZUR CULT IF INDIC CLEAN CATCH NO
[2017-07-10 11:47] LABS: MANUAL MICROSCOPIC REQUIRED? NO; REVIEW REQ? NO
[2017-07-10 13:40] VITALS: BP 100/55; PULSE 69; O2SAT 98
== END 2017-07-10 14:12 | disposition home or self-care (01) ==
LOC: C.EDB 10:06 → C.EDC 14:12
DX: M54.5 Low back pain (principal); J45.909 Unspecified asthma, uncomplicated; K21.9 Gastro-esophageal reflux disease without esophagitis; N73.9 Female pelvic inflammatory disease, unspecified; Z83.3 Family history of diabetes mellitus; Z82.0 Family history of epilepsy and other diseases of the nervous system

== ENCOUNTER 2017-10-21 13:45 | Emergency (ER) | payer OTHER ==
[~2017-10-21] VITALS: Ht 160 cm; Wt 66.7 kg
[2017-10-21 13:55] VITALS: TEMP 36.9; Ht 160 cm; Wt 66.7 kg
[2017-10-21] MEDS ORDERED: NALT380I INJ (14:04)
--- NOTE | 2017-10-21 14:26 | EMERGENCY ROOM VISIT NOTE ---
ED Visit Note First contact with patient: 14:02 CHIEF COMPLAINT: Rash HISTORY OF PRESENT ILLNESS: This 22-year-old female patient presents to the emergency department by private vehicle complaining of pain at an injection site on her buttocks which started approximately 1 week ago. She states that she had an injection of Vivitrol (for treatment of opiod dependence) on 10/13, which was her first time receiving this medication. She states that she started to notice a lump in the area shortly after the injection of the area has been painful. She states the area has not been red, swollen, hot to touch , had any drainage, or any other evidence of infection. The patient denies fever, chills, nausea, or loss of appetite. They deny any URI symptoms. The patient has tried heat packs and Tylenol without improvement. The patient rates the discomfort as 5/10. No weakness or numbness. REVIEW OF SYSTEMS: A 6 system review of systems was completed with positives and pertinent negatives listed in the HPI. ALLERGIES: Reviewed in chart MEDICATIONS: Reviewed in chart PMH: Reviewed in chart, significant for opioid abuse. SOCIAL HISTORY: Lives at home with family. She is current every day smoker, she denies alcohol, and denies recreational drugs currently. PHYSICAL EXAM: Vital Signs: Reviewed Nurse's notes, vital signs stable. GENERAL : Pleasant and cooperative, in no acute distress, well-developed, well- nourished. SKIN: Warm, pink, dry. There is an area on the left buttock that is firm and nodular just under the skin, tender to palpation with even light palpation, no fluctuance or induration, no erythema, no swelling, not warm to touch, no drainage. Capillary refill less than 2 seconds. EMERGENCY DEPARTMENT COURSE: I examined the patient. There are no exam findings concerning for an allergic reaction, abscess or cellulitis at the injection site. The area feels consistent with some nodular scar tissue formation, and review of Vivitrol indicates that swelling and nodules at the site of injection are not uncommon. Patient was offered ibuprofen for her pain today, she declines this stating she'll take her medicine at home. Patient was instructed to follow up with her PCP her symptoms do not resolve in the next 1- 2 weeks. She was encouraged to take ibuprofen and Tylenol as needed for pain, and to continue using warm compresses to the area for comfort. She was given return precautions should symptoms of infection develop, she verbalizes understanding. Patient was discharged home in stable condition and ambulatory. Problem List Medical Problems: (1) Appendectomy Status: Resolved (2) Asthma Status: Chronic (3) Chlamydia infection Status: Resolved (4) Pelvic pain in female Status: Chronic (5) PID (pelvic inflammatory disease) Status: Resolved Current/Historical Medications Scheduled Buspirone HCl (Buspirone HCl), 15 MG PO QID Mirtazapine (Mirtazapine), 15 MG PO HS Naltrexone (Vivitrol), 1 DOSE INJ MONTHLY Quetiapine Fumarate (Quetiapine Fumarate), 100 MG PO QID Allergies Coded Allergies: Edetic Acid (Verified Allergy, Severe, PALPITATIONS, 07/10/17) Egg Phospholipids (Verified Allergy, Severe, PALPITATIONS, 07/10/17) Glycerin (Verified Allergy, Severe, PALPITATIONS, 07/10/17) Propofol (Verified Allergy, Severe, PALPITATIONS, 07/10/17) Cat Dander (Verified Allergy, Unknown, SHORTNESS OF BREATH, 07/10/17) Vital Signs Date Time Temp Pulse Resp B/P (MAP) Pulse Ox O2 Delivery O2 Flow Rate FiO2 10/21/17 14:40 72 18 117/68 99 10/21/17 13:55 36.9 106 18 112/70 98 Room Air Departure Information Impression Primary Impression: Injection site reaction Dispostion Home / Self-Care Condition GOOD Referrals Gerry Frias M.D. (PCP) Patient Instructions Injection Intramuscular Buttock Dc, [facility] Additional Instructions You may take ibuprofen 800 mg every 8 hours and/or Tylenol 1000 mg every 8 hours as needed for pain. Try alternating between these two medications every 4 hours for the best pain relief. Apply a heating pad to the area for 20-30 minutes at a time throughout the day for discomfort. Follow-up with her primary care provider if your symptoms do not resolve in the next week. Seek immediate medical attention for any signs of infection, including redness, swelling, increasing pain, hot to the touch, pus drainage, fevers > 101.5, or any other concerns. Problem Qualifiers Primary Impression: Injection site reaction Encounter type: initial encounter Qualified Codes: T80.90XA - Unspecified complication following infusion and therapeutic injection, initial encounter
[2017-10-21 14:40] VITALS: BP 117/68; PULSE 72; O2SAT 99
== END 2017-10-21 14:41 | disposition home or self-care (01) ==
LOC: C.EDB 13:47 → C.EDD 14:41
DX: T80.90XA Unspecified complication following infusion and therapeutic injection, initial encounter (principal); Y84.8 Other medical procedures as the cause of abnormal reaction of the patient, or of later complication, without mention of misadventure at the time of the procedure; J45.909 Unspecified asthma, uncomplicated; F17.210 Nicotine dependence, cigarettes, uncomplicated

== ENCOUNTER 2017-10-28 00:42 | Emergency (ER) | payer OTHER ==
[~2017-10-28] VITALS: Ht 167.6 cm; Wt 53.0 kg
[~2017-10-28 00:42] MED LIST changes: +NALT380I INJ
[2017-10-28 00:47] VITALS: TEMP 36.7; Ht 167.6 cm; Wt 53.0 kg
[2017-10-28] MEDS ORDERED: MIRT30TA2 PO (01:08)
[2017-10-28] MEDS ORDERED: CLIN300C2 PO (01:54)
--- NOTE | 2017-10-28 01:57 | EMERGENCY ROOM VISIT NOTE ---
History First contact with patient: 00:49 Chief Complaint: ALLERGIC REACTION Stated Complaint: REACTION TO VIVATRIL SHOT AT INJECTION SITE Nursing Triage Summary: Got Vivitrol shot 2 weeks ago in left buttocks, now having pain, swelling. Was seen this ED a couple days ago, getting worse. Nausea, pressure in head. History of Present Illness The patient is a 22 year old female who presents to the Emergency Room with complaints of swelling in pain in the right buttock after receiving an injection of Vivitrol approximately 2 weeks ago. The patient received this injection in [place] for history of opioid dependence. She does report a history of IV drug use. The patient was seen here approximately one week ago for the same symptoms. She reports she has been using warm compresses without improvement of her symptoms. She feels that her symptoms have worsened in that time period. She was seen by her primary care provider today and referred here because "they were not sure what to do with her." She denies any fevers. She states she has been nauseous. She states this was the first time receiving this medication. She rates her overall discomfort an 8/10. Review of Systems A complete 10 point review of systems was reviewed with the patient with pertinent positives and negatives as per history of present illness. All else were negative. Past Medical/Surgical History Medical Problems: (1) Appendectomy (2) Asthma (3) Asthma, Unspecified (4) Chlamydia infection (5) Dysmenorrhea (6) Esophageal Reflux (7) Ovarian Cyst Nec/Nos (8) Pelvic pain in female (9) PID (pelvic inflammatory disease) Family History Cancer Diabetes mellitus Seizures Social History Smoking Status: Current Every Day Smoker Alcohol Use: occasionally Marital Status: single Housing Status: lives alone Occupation Status: employed Current/Historical Medications Scheduled Buspirone HCl (Buspirone HCl), 15 MG PO QID Clindamycin Hcl (Cleocin), 300 MG PO QID Mirtazapine Soltab (Remeron Soltab), 30 MG PO DAILY Naltrexone (Vivitrol), 1 DOSE INJ MONTHLY Quetiapine Fumarate (Quetiapine Fumarate), 100 MG PO QID Physical Exam Vital Signs Date Time Temp Pulse Resp B/P (MAP) Pulse Ox O2 Delivery O2 Flow Rate FiO2 10/28/17 00:47 36.7 100 20 149/73 95 Room Air Physical Exam VITALS: Vitals are noted on the nurse's note and reviewed by myself. Vital signs stable. GENERAL: This is a 22-year-old female, in no acute distress, nondiaphoretic, well-developed well-nourished. SKIN: There is an area of mild erythema, warmth and induration to the left upper gluteal region which measures approximately 3-4 cm in diameter. This area is tender to palpation. There is no palpable fluctuance. There is no drainage or open wound. NEURO: Patient was alert and oriented to person place and time. Medical Decision & Procedures Medical Decision Differential diagnosis includes cellulitis, abscess, injection site reaction, skin necrosis, among others. The patient was evaluated as above. She does have an area of induration and tenderness without fluctuance to the left gluteal region. The medication Vivitrol does commonly cause localized skin reactions, although the FDA does report cases of skin necrosis and abscess requiring surgical debridement in a small amount of cases. The patient will be treated for suspected cellulitis at this time. As the patient has a history of IV drug use, I do think it is important to cover for MRSA. The patient reports an allergic reaction to Bactrim in the past. For this reason, she will be placed on clindamycin. She was instructed to continue warm compresses. She may need evaluation by a surgeon and was given information for a general surgeon. She was instructed to follow-up with her primary care provider in 48 hours for a recheck. She verbalized understanding of my assessment and treatment plan and was discharged home in good condition. The patient's case was reviewed with Dr. Marquez, ED attending physician, who agreed with my assessment and treatment plan. Medication Reconcilliation Current Medication List: was personally reviewed by me Blood Pressure Screening Patient's blood pressure: Normal blood pressure Impression Primary Impression: Cellulitis of buttock Departure Information Dispostion Home / Self-Care Condition GOOD Prescriptions Clindamycin Hcl (CLEOCIN) 300 Mg Cap 300 MG PO QID for 10 Days, #40 CAP Prov: Karen Friedman .JEN 10/28/17 Referrals Gerry Frias M.D. (PCP) Vasile Beyer D.O. Patient Instructions My [facility] Additional Instructions You were prescribed Clindamycin to be taken four times daily as prescribed. This is an antibiotic. All antibiotics have the potential to cause diarrhea. Stop this medication and contact a medical provider if you were to develop any significant adverse side effects including: wheezing, shortness of breath, passing out, vomiting, or a diffuse rash. Always take antibiotics as directed and COMPLETE the ENTIRE course regardless of the improvement of your symptoms. For pain control, you can use the following [id number] medicines (if >12 yo): - Regular strength (325mg/tab) Tylenol (acetaminophen) 2 tabs every 4-6 hours as needed. Do not exceed 12 tablets in a 24 hour period. Avoid taking more than 4 grams (4000 mg) of Tylenol per day. This includes any other sources of acetaminophen you may take on a regular basis. - Regular strength (200 mg/tab) Advil (ibuprofen) 1-2 tabs every 4-6 hours as needed. Do not exceed a dose of 3200 mg per day. Continue to use warm compresses on the area frequently. Injection sites are common after receiving this medication, however sometimes you may develop reactions which required you to see a surgeon. You have been provided with the information for Dr. Beyer, a general surgeon. Call tomorrow to schedule an appointment. You should be rechecked by her primary care provider in 2 days to see if things are improving. Return here for worsening symptoms, fever, or any other new/concerning symptoms.
[2017-10-28] MEDS ORDERED: CLINDAMYCIN HCL 150 MG CAP PO ONE (02:00)
[2017-10-28 02:11] VITALS: BP 107/85; PULSE 87; O2SAT 98
== END 2017-10-28 02:11 | disposition home or self-care (01) ==
LOC: C.EDB 00:44 → C.EDA 02:11
DX: L03.317 Cellulitis of buttock (principal); J45.909 Unspecified asthma, uncomplicated; K21.9 Gastro-esophageal reflux disease without esophagitis; Z79.899 Other long term (current) drug therapy; Z87.42 Personal history of other diseases of the female genital tract; Z82.0 Family history of epilepsy and other diseases of the nervous system; Z83.3 Family history of diabetes mellitus; F17.200 Nicotine dependence, unspecified, uncomplicated

== ENCOUNTER 2018-01-26 08:23 | Emergency (ER) | payer OTHER ==
[~2018-01-26] VITALS: Ht 165.1 cm; Wt 59.7 kg
[~2018-01-26 08:23] MED LIST changes: -HYDR50CA2 PO; +MIRT30TA2 PO; -RBX750 PO; -RMR15 PO; -VLT/75 PO
[2018-01-26 08:29] VITALS: TEMP 37; Ht 165.1 cm; Wt 59.7 kg
--- NOTE | 2018-01-26 09:21 | DIAGNOSTIC IMAGING REPORT ---
MAXILLOFACIAL CT WITHOUT CONTRAST CLINICAL HISTORY: Facial trauma following syncope. COMPARISON STUDY: None. TECHNIQUE: A maxillofacial CT was performed without IV contrast. Coronal and sagittal reformats were viewed. A dose lowering technique was utilized adhering to the principles of ALARA. FINDINGS: A right inferior facial contusion is noted located anterior to the right parasymphyseal region of the mandible. No mandibular fracture is identified. Alignment of the temporomandibular joints is anatomic. There is no acute facial fracture. There is moderate rightward deviation the nasal septum with spur formation. There is mild sinus mucosal thickening, most evident within the ethmoid sinuses. Mastoid air cells are clear. There is no upper cervical spine fracture. Several piercings are incidentally noted. IMPRESSION: No acute facial fracture. Right inferior facial contusion. Electronically signed by: Matt Faith M.D. 01/26/2018 9:20 AM Dictated Date/Time: 01/26/2018 9:14 AM
[2018-01-26] MEDS ORDERED: KETO10TA PO (09:45)
[2018-01-26 10:10] VITALS: BP 121/81; PULSE 69; O2SAT 98
--- NOTE | 2018-01-26 17:05 | EMERGENCY ROOM VISIT NOTE ---
ED Visit Note First contact with patient: 08:33 Chief Complaint: Chin pain. History of Present Illness: Ms. Carlos is a 22-year-old white female who ambulates into the ED complaining of anterior ch pain. 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 She reports she started experiencing an abrupt onset of what she calls her pelvic inflammatory disease abdominal pain. She reports this is a chronic pain and intermittently flares. This pain started approximately 11:00 PM last evening. She reports after the onset of her pain she developed lightheadedness and had a syncopal episode. She reports while she was falling to the ground she struck her chin on a sink. She reports before the fall she was not experiencing any lightheadedness or dizziness, at the time of the fall she had no loss of consciousness. I also tried to question patients on her syncopal episode and once again she reaffirmed that she only wanted her chin evaluated today and did not want any additional testing. Currently she is complaining of a sharp and throbbing sensation over the anterior aspect of her chin. She rates this discomfort 7/10. She reports radiation of her pain into the bilateral ears/auditory canals. Her pain worsens with palpation and opening her mouth and biting down.. She has not identified any alleviating factors related to the pain. She reports she has taken any medications for pain for pain prior to arrival at the hospital. Associated with her pain she feels like her hearing is not as clear as it normally, she is experiencing headache and dizziness and intermittent nausea. When I tried to define her symptoms on evaluation for a possible closed head injury she informed me that she only wished to have her chin examined. Additionally she also reports she continues to have lower abdominal pain. I did offer to provide provide further evaluation on her symptoms of abdominal pain and headache and once again she refused and only wanted testing for her chin performed. She denies any visual changes, voice changes, recent dental work, neck pain, back pain, chest pain, shortness of breath, abdominal pain, nausea/vomiting, extremity weakness/numbness/tingling. Review of Systems: As noted above in history of present illness. At least body systems were reviewed and found to be negative as noted above. Past Medical History: (1) Appendectomy (2) Asthma (3) Asthma, Unspecified (4) Chlamydia infection (5) Dysmenorrhea (6) Esophageal Reflux (7) Ovarian Cyst Nec/Nos (8) Pelvic pain in female (9) PID (pelvic inflammatory disease) Current Medications: Medications Dose Route/Sig Max Daily Dose Days Date Category Remeron Soltab (Mirtazapine) 30 Mg Soltab 30 Mg PO DAILY 10/28/17 Reported Quetiapine Fumarate 100 Mg Tab 100 Mg PO QID 07/10/17 Reported Buspirone HCl 15 Mg Tab 15 Mg PO QID 07/10/17 Reported Allergies to Medications: Edetic acid. Egg phospholipids, Claritin, propofol Social History: Patient is currently employed; she feels safe in her home environment; she admits to tobacco use and denies alcohol use. Physical Examination: Vital Signs: Date Time Temp Pulse Resp B/P (MAP) Pulse Ox O2 Delivery O2 Flow Rate FiO2 01/26/18 10:10 69 18 121/81 98 01/26/18 08:29 37.0 84 18 121/82 98 Room Air GENERAL: 24-year-old female in mild distress due to pain, nontoxic-appearing, afebrile and hemodynamically stable. NEUROLOGICAL: Awake, alert and oriented to person, place and time. Answering questions appropriately and following commands. Normal gait. Good hand eye coordination. Cranial nerves II through XII grossly intact. SKIN: Warm, dry and pink. Contusion over the anterior and lateral aspect of the left chin. No active bleeding. HEENT: Atraumatic and normocephalic. Skull: No bony deformities, bony crepitus , swelling or ecchymosis. No raccoons eyes or [place] signs. No drainage from ears of the nares; no hemotympanum. Face: Contusion of the inferior right lateral border of the mandible. There is no bony deformity or crepitus. PERRLA. EOMI without nystagmus. Sclera white and conjunctiva pink. No malocclusion. Because of patient's pain she could only open her mouth so far and the airway was patent. No foreign bodies were noted. Her speech was normal and clear. No intraoral trauma or dental trauma was noted. BACK: No tenderness over the bony spine. No CVA tenderness. THORAX: Lungs sounds are clear to auscultation and equal bilaterally with symmetrical chest wall. EXTREMITIES: Moves all extremities well on command and with purpose. All distal neurovascular statuses are intact and equal bilaterally. ED Course: Patient is assessed as noted above. Patient's medication list was reviewed. Patient was offered pain medication and refused. Facial CT: Was read by the radiologist and reviewed by myself shows no acute facial fracture. Patient was educated about today's findings and instructed on her treatment plan ; she verbalized understanding and agreement with this plan. Clinical Impression: Chin contusion. Abdominal pain. Syncope. Disposition: Patient discharged home in stable condition; prior to departure she was reassessed and subjectively reported she was feeling the same. Plan: Patient was prescribed Toradol 10 mg every 6 hours as needed for pain and she was encouraged to alternate the Toradol with 650 mg of acetaminophen every 3 hours as needed. Other comfort measures included rest and ice, the use of a liquid or mechanical soft diet until resolution of pain. Patient was educated on signs of head injury. Patient was encouraged to consider following up with [employer] for her ongoing chronic PID pain. Patient was encouraged to return follow-up with her primary care provider for recheck of her chin pain if no better in 3-4 days. Patient is encouraged return to the ED for any signs of head injury or any new/ concerning symptoms
== END 2018-01-26 10:12 | disposition home or self-care (01) ==
LOC: C.EDB 08:25
DX: S00.83XA Contusion of other part of head, initial encounter (principal); W22.8XXA Striking against or struck by other objects, initial encounter; R55 Syncope and collapse; R10.30 Lower abdominal pain, unspecified; R51 Headache; R11.0 Nausea; R42 Dizziness and giddiness; J45.909 Unspecified asthma, uncomplicated; Z72.0 Tobacco use; Z88.8 Allergy status to other drugs, medicaments and biological substances; Z91.018 Allergy to other foods; Z91.012 Allergy to eggs

== ENCOUNTER 2024-10-20 06:18 | Inpatient (IN) ==
[2024-10-20] MEDS ORDERED: ACETAMINOPHEN 325 MG TAB PO PRN (07:33)
[2024-10-20] MEDS ORDERED: LIDOCAINE 1% LOCAL 20 ML VIAL INFIL PRN (07:33)
[2024-10-20] MEDS ORDERED: CALCIUM CARBONATE 500 MG CHEWABLE TAB PO PRN (07:33)
[2024-10-20] MEDS ORDERED: OXYTOCIN 30 UNITS/NSS 30 UNITS/500 ML BAG IV PRN ×2 (07:33→11:31)
[2024-10-20] MEDS ORDERED: SODIUM CHLORIDE 0.9% 1,000 ML IV SCH (08:15)
[2024-10-20 08:21] LABS: Hematocrit (blood only) 31.1 % (37.0-47.0); Hemoglobin 10.1 g/dl (12.0-16.0); Mean Corpuscular Hemoglobin 28.1 pg (25.0-34.0); Mean Corpuscular Hgb Conc 32.5 g/dL (32.0-36.0); Mean Corpuscular Volume 86.6 fL (80.0-100.0); Mean Platelet Volume 10.7 fL (9.4-12.4); Platelet Count 228 K/uL (130-400); RDW Coefficient of Variation 13.4 % (11.5-14.5); RDW Standard Deviation 41.9 fL (36.4-46.3); Red Blood Count 3.59 M/uL (4.20-5.40); White Blood Count 11.57 K/ul (4.8-10.8)
[2024-10-20] MEDS ORDERED: fentaNYL citrate PF 100 MCG/2 ML VIAL EPI PRN (08:25)
[2024-10-20] MEDS ORDERED: NALBUPHINE HCL INJ 10 MG/ML AMP IV PRN (08:25)
[2024-10-20] MEDS: SODIUM CHLORIDE 0.9% 1,000 ML IV SCH (08:25)
[2024-10-20] MEDS ORDERED: NALOXONE HCL 1 MG in SODIUM CHLORIDE 0.9% 1,000 ML IV PRN (08:25)
[2024-10-20] MEDS ORDERED: SODIUM CHLORIDE 0.9% PF INJ 10 ML VIAL EPI PRN (08:25)
[2024-10-20] MEDS ORDERED: diphenhydrAMINE 50 MG/ML VIAL IV PRN (08:25)
[2024-10-20] MEDS ORDERED: ROPIVACAINE 0.5% PF 5 MG/ML 20 ML VIAL EPI PRN (08:25)
[2024-10-20] MEDS ORDERED: LIDOCAINE 2% MPF LOCAL 5 ML VIAL EPI PRN (08:25)
[2024-10-20] MEDS ORDERED: NALOXONE HCL 0.4 MG/1 ML VIAL/CARP IV PRN (08:25)
[2024-10-20] MEDS ORDERED: ePHEDrine sulfate 50 MG/ML AMP IV PRN (08:25)
[2024-10-20] MEDS ORDERED: BUPIVACAINE 0.25% PF 30 ML VIAL EPI PRN (08:25)
[2024-10-20] MEDS ORDERED: fentANYL 2 MCG/ML BUPIVacaine 0.125%-NSS 100ML BAG EPI PRN (08:25)
--- NOTE | 2024-10-20 08:27 | Anesthesiology Consultation ---
Date of Service October 20, 2024 Assessment & Plan (1) Encounter for pre-operative examination: Chart Review Chart Review: Patient NOT seen in Pre Admission Testing and Acceptable Risk for Labor Epidural Consults Requested none History Height/Weight Height: 5 ft 5 in Weight: 79.379 kg Allergies Allergy/AdvReac Type Severity Reaction Status Date / Time cat dander Allergy Severe SHORTNESS Verified 10/20/24 07:34 OF BREATH edetic acid Allergy Severe PALPITATION Verified 10/20/24 07:34 S glycerin Allergy Severe PALPITATION Verified 10/20/24 07:34 S propofol Allergy Severe PALPITATION Verified 10/20/24 07:34 S Egg Phospholipids Allergy Severe PALPITATION Uncoded 10/10/24 11:33 S Medications Home Medications Medication Instructions Recorded Confirmed Last Taken vits no.124-ferrous fum 1 tab PO DAILY 10/20/24 10/20/24 10/18/24 08:30 27 mg iron-folic acid 800 mcg tablet ( Vitamin) Past Medical History Medical History (Updated 10/20/24 @ 08:27 by Remington Dumont MD) Encounter for pre-operative examination Other and unspecified ovarian cyst Unspecified asthma, uncomplicated Infertility, female Varicella vaccination Intrauterine (08/29/12) Feeling suicidal Esophageal reflux Dysmenorrhea Drug overdose Depression Asthma Yeast cystitis UTI (urinary tract infection) Syncope Strep pharyngitis Pelvic pain in female Pain, dental Pain in left lower leg Nausea and vomiting Left flank pain Dizziness Diarrhea Dental infection Chronic abdominal pain Bilateral leg pain Back strain Arthralgia Abdominal pain Chlamydia infection PID (pelvic inflammatory disease) Dehydration Syncope Laryngitis Concussion Vomiting Abdominal pain Acute costochondritis Exercise / Class Metabolic Activity II 4-5 Yardwork/Stairs/Walk up hill Past Family History Family History Uncle Colorectal cancer Mother Cervical cancer Other No significant family history Denies family history of Ovarian cancer Myocardial infarction Breast cancer Past Surgical History Surgical History S/P wisdom tooth extraction S/P exploratory laparotomy S/P appendectomy Social History Smoking Status: Former smoker tobacco type: cigarettes Smoking cigarettes per day: non-nictoine vape; occasional Hx Alcohol Use: No Hx Substance Use: No (denies clean for 6 years) Last Used Substance Other:: hx of meth and heroine use; clean for 6 years Physical Exam Vital Signs Last Vital Signs Temp 36.7 C 10/20/24 08:55 Pulse 93 H 10/20/24 09:19 Resp 20 10/20/24 08:55 BP 119/81 10/20/24 09:18 Pulse Ox 98 10/20/24 09:19 Testing Laboratory Results 10/20/24 07:53
[2024-10-20] MEDS: LIDOCAINE 2%/EPINEPHRINE 1:200,000 20 ML PF ONE (09:21)
[2024-10-20] MEDS: BUPIVACAINE 0.25% PF 30 ML VIAL ONE (09:21)
[2024-10-20] MEDS: fentaNYL citrate PF 100 MCG/2 ML VIAL ONE (09:22)
[2024-10-20] MEDS: fentANYL 2 MCG/ML BUPIVacaine 0.125%-NSS 100ML BAG ONE (09:23)
[2024-10-20] MEDS: SODIUM CHLORIDE 0.9% PF INJ 10 ML VIAL ONE (09:30)
[2024-10-20] MEDS: SODIUM CHLORIDE 0.9% PF INJ 10 ML VIAL EPI STA (09:34)
[2024-10-20] MEDS: OXYTOCIN 30 UNITS/NSS 30 UNITS/500 ML BAG IV PRN (10:03)
[2024-10-20] MEDS: ePHEDrine sulfate 50 MG/ML AMP ONE (10:07)
--- NOTE | 2024-10-20 10:12 | History & Physical Report ---
Date of Service October 20, 2024 Assessment & Plan (1) Encounter for vaginal delivery: Plan: 29 years +1 at 38 W6 D POG in labor with Rh Negative non isoimmunized status( last antibody 08/29: negative), received rhogam twice Contractions started yesterday. Labor has progressed since this AM, now in Active phase( 1) Plan: Spontaneous progress of labor History of Present Illness Primary Care Provider: Gerry Frias MD Patient is a 29 yo female +1 currently at 38w6d WGA with an EDD1 as determined by LMP who is here in labor. She is Rh Negative, received Rhogam twice antenatally(*given 05/26/24 due to bleeding. Second Rhogam 08/29/2024). Having contractions; movement present with fluid leak, mildly meconium. External FHT and external uterine monitors used; category 1 tracing; normal FHT variability Had regular appointments with OB. IOL was planned for 10/21, but she came in labor today. GBS -ve, BG: A neg Last US ( 09/26): efw=52%/ ac=51% RFs: -Rh negative -Hep B nonimmune -hx of meth and heroin use in the past -Hx mild bladder and rectal prolapse with prior delivery [facility] MFM consult- states should not affect delivery Julisa's 13 year old daughter is keen in attending the delivery and parent support as well. Explained the process and consent signed. Allergies Allergy/AdvReac Type Severity Reaction Status Date / Time cat dander Allergy Severe SHORTNESS Verified 10/20/24 07:34 OF BREATH edetic acid Allergy Severe PALPITATION Verified 10/20/24 07:34 S glycerin Allergy Severe PALPITATION Verified 10/20/24 07:34 S propofol Allergy Severe PALPITATION Verified 10/20/24 07:34 S Egg Phospholipids Allergy Severe PALPITATION Uncoded 10/10/24 11:33 S Home Medications Medication Instructions Recorded Confirmed Type vits no.124-ferrous fum 1 tab PO DAILY 10/20/24 10/20/24 History 27 mg iron-folic acid 800 mcg tablet ( Vitamin) Patient History Medical History (Updated 10/20/24 @ 10:07 by Hiral Manzano MD) Encounter for pre-operative examination Other and unspecified ovarian cyst Unspecified asthma, uncomplicated Infertility, female Varicella vaccination Intrauterine (08/29/12) Feeling suicidal Esophageal reflux Dysmenorrhea Drug overdose Depression Asthma Yeast cystitis UTI (urinary tract infection) Syncope Strep pharyngitis Pelvic pain in female Pain, dental Pain in left lower leg Nausea and vomiting Left flank pain Dizziness Diarrhea Dental infection Chronic abdominal pain Bilateral leg pain Back strain Arthralgia Abdominal pain Chlamydia infection PID (pelvic inflammatory disease) Dehydration Syncope Laryngitis Concussion Vomiting Abdominal pain Acute costochondritis Surgical History S/P wisdom tooth extraction S/P exploratory laparotomy S/P appendectomy Family History Uncle Colorectal cancer Mother Cervical cancer Other No significant family history Denies family history of Ovarian cancer Myocardial infarction Breast cancer Social History (Updated 10/20/24 @ 07:33 by Yolande Pena RN) Smoking Status: Former smoker Tobacco Type: E-cigarettes / Vaping Cigarettes Per Day: non-nictoine vape; occasional; Hx Alcohol Use: No Hx Substance Use: No (denies clean for 6 years) Preferred Language: Ukrainian Communication Ability: Effective Doctor Of Nurse Anesthesia Required: No Beliefs That Will Affect Care: None marital status: Single marital status details: Rishi Townsend ([phone]) Current Living Situation: Significant Other Current Living Situation Comment: daughterRishi and Rishi's daughter current occupational status: employed current occupation: [employer] Other Information That Helps Us Care for You: No Feels Safe at Home: Yes Safety Concerns: Feels Safe At This Time Assistive Devices: None Review of Systems Denies fever, chills, sweats. Denies SOB, difficulty breathing, chest pain, palpitations, and chest pressure. Denies breast pain. Denies dysuria. Denies headache or changes in vision. Physical Exam Physical Exam: General: Alert and oriented. No acute distress CV: Regular rate and rhythm. No murmurs. Respiratory: CTA bilaterally. No rhonchi, wheezes, or crackles. No increased work of breathing. Abdomen: Gravid; Soft, nontender upon palpation Pelvic: Dilated 9 cm; Effacement: 90% Station +[address] Nolen Lower extremities: No LE edema. No deep calf pain. Results & Data Vital Signs (Past 12 Hours) Vital Signs Temp Pulse Resp BP Pulse Ox 10/20/24 09:50 86 102/71 10/20/24 09:49 85 98 10/20/24 09:46 88 95/62 L 10/20/24 09:45 88 102/61 10/20/24 09:44 86 97 10/20/24 09:41 104 H 105/59 L 10/20/24 09:39 90 98 10/20/24 09:35 95 H 107/69 10/20/24 09:34 89 97 10/20/24 09:33 88 109/76 10/20/24 09:31 94 H 107/76 10/20/24 09:29 99 10/20/24 09:29 95 H 10/20/24 09:29 93 H 102/69 10/20/24 09:27 82 111/73 10/20/24 09:25 88 107/70 10/20/24 09:24 85 99 10/20/24 09:23 86 115/70 10/20/24 09:21 86 119/83 10/20/24 09:19 93 H 98 10/20/24 09:18 84 119/81 10/20/24 09:15 77 92 10/20/24 09:14 76 98 10/20/24 09:09 86 100 10/20/24 09:04 91 H 100 10/20/24 08:59 96 H 100 10/20/24 08:55 20 10/20/24 08:55 36.7 C 20 10/20/24 08:54 103 H 100 10/20/24 08:52 98 H 141/92 H 10/20/24 07:08 36.9 C 20 10/20/24 06:40 18 10/20/24 06:40 36.7 C 18 10/20/24 06:39 101 H 131/76 Code Status & VTE Plan VTE Prophylaxis Plan VTE Prophylaxis will be ordered: No Resident Activity Tracking Resident Involvement: Resident Care Provided Care Provided: OB Delivery
--- NOTE | 2024-10-20 11:22 | Delivery Summary ---
Vaginal Delivery Summary Date of Service October 20, 2024 Vaginal Delivery Summary DIAGNOSES: 1. Mckinney intrauterine at 38w6d gestation. 2. Spontaneous onset of labor. 3. Group B Streptococcus Neg. PROCEDURE: Spontaneous vaginal delivery without laceration. SURGEON: Jud Nolen MD. SPIRAL W[employer]ING MACHINE HELPER: None. QUANTITATIVE BLOOD LOSS: 50 mL. COMPLICATIONS: None. PLACENTA: Spontaneous and intact with a 3-vessel cord. DISPOSITION: Stable to labor and delivery. DESCRIPTION: The patient pushed well and brought the head to in DOA position. The 's head was allowed to deliver with contraction force and no further active pushing, with the perineum protected during this time. There was no nuchal cord. The left shoulder was anterior. The shoulders and body delivered without any difficulty, and the was placed on the maternal abdomen. It was vigorous and moving all extremities, and making respiratory efforts. The cord was doubly clamped by the MD and then cut by the FOB. The placenta delivered spontaneously and was noted to be intact and with a 3VC. The cervix, vagina and perineum were examined and were found to be without defect requiring repair. The fundus was firm and lochia minimal immediately after delivery. MNP Vaginal Delivery Charge Vaginal Delivery Codes: 61532 global code for the antepartum, delivery, and post-
[2024-10-20] MEDS ORDERED: HYDROCORTISONE ACETATE 25 MG SUPP PR PRN (11:31)
[2024-10-20] MEDS ORDERED: bisacodyL 10 MG SUPP PR PRN (11:31)
[2024-10-20] MEDS: BUPIVACAINE 0.25% PF 30 ML VIAL EPI STA (14:32)
[2024-10-20] MEDS: LIDOCAINE 2%/EPINEPHRINE 1:200,000 20 ML PF EPI STA (14:32)
[2024-10-20] MEDS: fentaNYL citrate PF 100 MCG/2 ML VIAL EPI STA (14:32)
[2024-10-20] MEDS: DIPHTHER/TETAN/PERTUS Vaccine (Tdap, Adol/Adult) 0.5mL IM ONE (14:33)
--- NOTE | 2024-10-20 14:44 | Anesthesia Procedure Note ---
Date of Service October 20, 2024 Anesthesia Post Epidural Note Vital Signs Vital Signs: Temp Pulse Resp BP Pulse Ox 36.7 C 88 18 119/76 100 10/20/24 08:55 10/20/24 14:30 10/20/24 13:20 10/20/24 14:30 10/20/24 11:19 Notes Mental Status: alert / awake / arousable and participated in evaluation Patient Amnestic to Procedure: No Nausea / Vomiting: adequately controlled Pain: adequately controlled Airway Patency, RR, SpO2: stable & adequate BP & HR: stable & adequate Hydration State: stable & adequate Neuraxial Anesthesia: was administered and sensory block resolved Anesthetic Complications: no major complications apparent and Pt Satisfied with anesthetic care Epidural: Removed without complications and With tip intact
[2024-10-20] MEDS: IBUPROFEN 600 MG TAB PO PRN (17:51)
[2024-10-20] MEDS: BENZOCAINE 20% SPRY 85 APPLN/85 GM CAN EXT PRN (19:53)
[2024-10-20] MEDS: DOCUSATE SODIUM 100 MG CAP PO SCH (21:10)
[2024-10-21] MEDS: ACETAMINOPHEN 325 MG TAB PO PRN (01:22)
[2024-10-21 06:29] LABS: Hematocrit (blood only) 32.4 % (37.0-47.0); Hemoglobin 10.3 g/dl (12.0-16.0); Mean Corpuscular Hemoglobin 28.1 pg (25.0-34.0); Mean Corpuscular Hgb Conc 31.8 g/dL (32.0-36.0); Mean Corpuscular Volume 88.3 fL (80.0-100.0); Mean Platelet Volume 10.5 fL (9.4-12.4); Platelet Count 217 K/uL (130-400); RDW Coefficient of Variation 13.7 % (11.5-14.5); RDW Standard Deviation 43.9 fL (36.4-46.3); Red Blood Count 3.67 M/uL (4.20-5.40); White Blood Count 14.54 K/ul (4.8-10.8)
--- NOTE | 2024-10-21 06:31 | Obstetrical Progress Note ---
Date of Service October 21, 2024 Assessment & Plan (1) Normal vaginal delivery: Plan: Both mom and baby doing well. Discharge today as per protocol Admission and Anticipated Discharge Date Admission Date: October 20, 2024 Supervising Physician Co-Signing Physician Notes Resident Physician Supervision Note: I interviewed and examined the patient. Discussed with Dr. Manzano and agree with findings and plan as documented in the note. Any exceptions or clarifications are listed here: [ ] Documented By: Jud Nolen MD, FACOG Subjective 1st PPD following with Laceration in 30 years at term. Complains of gassy abdomen. Baby doing well. Pain: Mild, intermittent Lochia: Moderate Diet: Regular Ob diet Gas: Passed Peeing: Normal, no bladder distension Ambulation: Normally . Review of Systems Review of Systems: No SOB, chest pain, leg pain No dizziness, headache, palpitation No Blurring of vision , fever Physical Exam Physical Exam: General: Alert and oriented. No acute distress. CVS: S1 S2+ No murmurs, regular rhythm. Respiratory: CTA bilaterally. No rhonchi, wheezes, or crackles. No increased work of breathing. Abdomen: Bowel sound +. Soft, nontender Uterus: Fundus firm and palpable midway between umbilicus and SP. Well contracted. Lower extremities: No LE edema. No deep calf pain. Results & Data Vital Signs (Past 12 Hours) Vital Signs Temp Pulse Resp BP Pulse Ox O2 Del Method 10/21/24 02:59 36.6 C 82 16 103/67 97 Room Air 10/20/24 22:52 36.9 C 81 16 114/74 96 Room Air 10/20/24 19:40 Room Air 10/20/24 19:14 36.8 C 86 16 110/73 99 Room Air Resident Activity Tracking Resident Involvement: Resident Care Provided Care Provided: OB Delivery
[2024-10-21 07:28] VITALS: O2SAT 96
[2024-10-21] MEDS: PRENATAL VITAMIN 1 TAB PO SCH (08:27)
[2024-10-21] MEDS: SIMETHICONE 80 MG CHEW PO PRN (09:59)
[2024-10-21 11:29] VITALS: RESP 16; TEMP 98.1
[2024-10-21 13:36] VITALS: BP 111/71; PULSE 80
[2024-10-21] MEDS ORDERED: bisacodyL 5 MG TABEC PO SCH (20:00)
== END 2024-10-21 13:36 | disposition home or self-care (01) | DRG 807 ==
LOC: OPB 06:18 → 4S1 06:20 → 4E2 16:50
DX: O26.893 Other specified pregnancy related conditions, third trimester; O77.0 Labor and delivery complicated by meconium in amniotic fluid; Z87.891 Personal history of nicotine dependence; Z88.8 Allergy status to other drugs, medicaments and biological substances; Z91.012 Allergy to eggs; Z88.4 Allergy status to anesthetic agent; Z67.11 Type A blood, Rh negative; Z37.0 Single live birth; Z3A.38 38 weeks gestation of pregnancy; Z91.048 Other nonmedicinal substance allergy status